=== PATIENT | male | born 1940 | race Caucasian/White ===

== ENCOUNTER → 2016-08-17 | Outpatient (REF) | payer MEDICARE, OTHER ==
[2016-08-17 17:15] LABS: INR 1.01
== END ==
LOC: M LAB REF 16:04
PROVIDERS: ATTEND Family Medicine
DX: Z01.818 Encounter for other preprocedural examination (principal); I72.3 Aneurysm of iliac artery; D69.8 Other specified hemorrhagic conditions

== ENCOUNTER 2017-07-18 09:47 | Day surgery (SDC) | payer MEDICARE, OTHER ==
[2017-07-18] MEDS: PHENYLEPHRINE 2.5% OPHTH SOL 2ML OS (11:54)
[2017-07-18] MEDS: TROPICAMIDE 1% OPHTH SOLN 2ML OS (11:54)
[2017-07-18] MEDS: OFLOXACIN 0.3 % (OCUFLOX) OPTH SOL 5ML OS (11:55)
[2017-07-18] MEDS: PROPARACAINE 0.5% OPHTH SOL 15ML OD (11:55)
[2017-07-18] MEDS ORDERED: fentaNYL 100 MCG/2 ML INJECTION (J3010) As Ordered (12:10)
[2017-07-18] MEDS ORDERED: MIDAZOLAM INJ 2 MG/2 ML VIAL (J2250) As Ordered (12:10)
[2017-07-18] MEDS: POVIDONE-IODINE 5% OPHTH PREP SOL 30ML As Ordered (12:19)
[2017-07-18] MEDS: DUOVISC (0.50ML VISCOAT/0.55ML PROVISC) OPHTH KIT As Ordered (12:20)
[2017-07-18] MEDS: LIDOCAINE 0.75%/EPINEPHRINE 0.025% IN BSS 1ML SYR INTRACAMERAL (OR ONLY) As Ordered (12:20)
[2017-07-18] MEDS: CEFUROXIME 1MG/0.1ML INTRACAMERAL INJ As Ordered (12:20)
[2017-07-18] MEDS: BALANCED SALT IRRIGATION SOLUTION 500ML BAG (FOR OR EYE MACHINE) As Ordered (12:20)
== END 2017-07-18 13:30 | disposition home or self-care (01) ==
LOC: M SDC 09:47
DX: H25.12 Age-related nuclear cataract, left eye (principal); I25.10 Atherosclerotic heart disease of native coronary artery without angina pectoris; I73.9 Peripheral vascular disease, unspecified; J44.9 Chronic obstructive pulmonary disease, unspecified; K21.9 Gastro-esophageal reflux disease without esophagitis; R73.01 Impaired fasting glucose; E78.4 Other hyperlipidemia; N52.9 Male erectile dysfunction, unspecified; F17.290 Nicotine dependence, other tobacco product, uncomplicated; Z79.82 Long term (current) use of aspirin; Z79.899 Other long term (current) drug therapy
CPT/HCPCS: 66984

== ENCOUNTER → 2017-08-26 | Outpatient (CLI) | payer MEDICARE, OTHER | LOC: M WUC 10:14 | DX: R05 Cough (principal) | CPT/HCPCS: 71046 ==

== ENCOUNTER 2017-08-27 16:13 | Emergency (ER) | payer MEDICARE, OTHER ==
[2017-08-27] MEDS: BENZONATATE 100 MG CAP PO (17:45)
== END 2017-08-27 17:56 | disposition home or self-care (01) ==
LOC: M ED 16:13
DX: J18.9 Pneumonia, unspecified organism (principal); I10 Essential (primary) hypertension; J44.9 Chronic obstructive pulmonary disease, unspecified; F17.210 Nicotine dependence, cigarettes, uncomplicated; Z79.899 Other long term (current) drug therapy; Z79.82 Long term (current) use of aspirin; Z79.2 Long term (current) use of antibiotics
CPT/HCPCS: 99283

== ENCOUNTER 2017-12-03 07:31 | Day surgery (SDC) | payer MEDICARE, OTHER ==
[2017-12-03] MEDS: NS 1,000 ML IV (07:45)
[2017-12-03] MEDS ORDERED: LIDOCAINE 2% INJ 100 MG/5 ML SDV (FOR ANES.) As Ordered (09:02)
[2017-12-03] MEDS ORDERED: PROPOFOL 200 MG/20 ML VIAL As Ordered ×2 (09:02→09:56)
[2017-12-03] MEDS ORDERED: fentaNYL 100 MCG/2 ML INJECTION (J3010) As Ordered (09:02)
[2017-12-03] MEDS ORDERED: ALBUTEROL 6.7GM INHALER **FOR ANES. CART/OMNICELL ONLY As Ordered (09:29)
== END 2017-12-03 11:45 | disposition home or self-care (01) ==
LOC: M OPP 07:31
DX: Z12.11 Encounter for screening for malignant neoplasm of colon (principal); Z86.010 Personal history of colon polyps; D12.5 Benign neoplasm of sigmoid colon; K57.30 Diverticulosis of large intestine without perforation or abscess without bleeding; R10.9 Unspecified abdominal pain; R63.4 Abnormal weight loss; K31.89 Other diseases of stomach and duodenum; Z87.19 Personal history of other diseases of the digestive system; I25.10 Atherosclerotic heart disease of native coronary artery without angina pectoris; I25.6 Silent myocardial ischemia; I10 Essential (primary) hypertension; E78.5 Hyperlipidemia, unspecified; I73.9 Peripheral vascular disease, unspecified; R19.7 Diarrhea, unspecified; K21.9 Gastro-esophageal reflux disease without esophagitis; R12 Heartburn; R06.02 Shortness of breath; R42 Dizziness and giddiness; M19.90 Unspecified osteoarthritis, unspecified site; M54.89 Other dorsalgia; R26.89 Other abnormalities of gait and mobility; J44.9 Chronic obstructive pulmonary disease, unspecified; R05 Cough; Z85.46 Personal history of malignant neoplasm of prostate; Z96.643 Presence of artificial hip joint, bilateral; F17.290 Nicotine dependence, other tobacco product, uncomplicated; Z88.5 Allergy status to narcotic agent; Z79.82 Long term (current) use of aspirin; Z79.899 Other long term (current) drug therapy
CPT/HCPCS: 45380

== ENCOUNTER → 2018-04-30 | Outpatient (REF) | payer MEDICARE, OTHER ==
[~2018-04-30] MED LIST: ALLE180T33 PO; AMLO5TAB6 PO; ATOR1TAB21 PO; BAYECHW PO; METO1TAB32 PO; NAPR250T4 PO; NITR0.4S14 SL; OCUVTAB PO; TESS100C PO; TYLE1TAB5 PO
[2018-04-30 18:49] LABS: INFLUENZA A AMPLIFICATION POSITIVE (NEGATIVE); INFLUENZA B AMPLIFICATION NEGATIVE (NEGATIVE)
== END ==
LOC: M LAB REF 16:52
PROVIDERS: ATTEND Nurse Practitioner Family
DX: R05 Cough (principal)

== ENCOUNTER → 2021-08-21 | Outpatient (REF) | payer MEDICARE, OTHER ==
[~2021-08-21] MED LIST changes: +AMLO1TAB24 PO; -AMLO5TAB6 PO; +NAPR-849 PO; -NAPR250T4 PO
== END ==
LOC: M LAB REF 16:26
PROVIDERS: ATTEND Family Medicine
DX: R30.0 Dysuria (principal)

== ENCOUNTER → 2022-06-28 | Outpatient (CLI) | payer MEDICARE, OTHER | LOC: M WHC 12:20 | PROVIDERS: ATTEND Family Medicine | DX: R60.9 Edema, unspecified (principal); I73.9 Peripheral vascular disease, unspecified ==

== ENCOUNTER → 2023-06-06 | Outpatient (REF) | payer MEDICARE, OTHER ==
[2023-06-06 13:50] LABS: BASO # 0.1 10^3/uL (0.0-0.2); BASO % 0.7 % (0.0-1.0); EOS # 0.2 10^3/uL (0.0-0.5); EOS % 1.3 % (0.0-3.0); HEMATOCRIT 45.4 % (42.0-52.0); HEMOGLOBIN 15.3 g/dl (13.5-17.5); LYMPH # 1.4 10^3/uL (1.5-5.0); LYMPH % 10.7 % (24.0-44.0); MEAN CORPUSCULAR HGB CONC 33.7 g/dl (32.0-36.5); MEAN CORPUSCULAR VOLUME 98.1 fl (80.0-96.0); MONO # 0.9 10^3/uL (0.0-0.8); MONO % 7.1 % (2.0-8.0); NEUTROPHILS # 10.2 10^3/uL (1.5-8.5); NEUTROPHILS % 79.8 % (36.0-66.0); PLATELET COUNT, AUTOMATED 256 10^3/uL (150-450); RED BLOOD COUNT 4.63 10^6/uL (4.30-6.10); WHITE BLOOD COUNT 12.7 10^3/uL (4.0-10.0)
== END ==
LOC: M LAB REF 12:54
PROVIDERS: ATTEND Physician Assistant Medical
DX: I48.0 Paroxysmal atrial fibrillation (principal); Z79.01 Long term (current) use of anticoagulants

== ENCOUNTER → 2023-06-28 | Outpatient (CLI) | payer MEDICARE, OTHER | LOC: M WUC 10:39 | PROVIDERS: ATTEND Family Medicine | DX: R06.02 Shortness of breath (principal) ==

== ENCOUNTER → 2023-08-06 | Outpatient (CLI) | payer MEDICARE, OTHER | LOC: M PLAIMG 10:26 | PROVIDERS: ATTEND Internal Medicine Pulmonary Disease | DX: I71.21 Aneurysm of the ascending aorta, without rupture (principal); D35.02 Benign neoplasm of left adrenal gland; D35.01 Benign neoplasm of right adrenal gland; R91.8 Other nonspecific abnormal finding of lung field ==

== ENCOUNTER → 2025-01-18 | Outpatient (REF) | payer MEDICARE, OTHER ==
[2025-01-18 18:11] LABS: VITAMIN B12 LEVEL 322.0 PG/ML (211-911)
== END ==
LOC: M LAB REF 17:18
PROVIDERS: ATTEND Family Medicine
DX: R41.3 Other amnesia (principal)

== ENCOUNTER → 2025-01-26 | Outpatient (CLI) | payer MEDICARE, OTHER | LOC: M RAD 15:49 | PROVIDERS: ATTEND Internal Medicine Cardiovascular Disease | DX: I25.10 Atherosclerotic heart disease of native coronary artery without angina pectoris (principal) ==